=== PATIENT | female | born 1980 | race Hispanic/Latino ===

== ENCOUNTER 2022-04-10 12:50 | Observation (INO) | payer OTHER ==
[~2022-04-10] VITALS: Ht 160 cm; Wt 82.6 kg
[2022-04-10] MEDS ORDERED: SODIUM CHLORIDE FLUSH 10 ML SYR INJ PRN (13:30)
[2022-04-10] MEDS ORDERED: ASPIRIN 325 MG TAB PO ONE (13:30)
[2022-04-10] MEDS ORDERED: INDERAL20 MG PO (13:36)
[2022-04-10] MEDS ORDERED: FLECAINIDE ACE100 MG PO (13:37)
[2022-04-10] MEDS ORDERED: ASPIRIN 325 MG TAB ONE (13:51)
[2022-04-10] MEDS: FAMOTIDINE 20 MG TAB PO SCH ×2 (16:29→20:48)
[2022-04-10 17:33] VITALS: BP 117/81
[2022-04-10 17:40] VITALS: BP 117/81
[2022-04-10 17:54] VITALS: BP 117/81
[2022-04-10 18:32] LABS: CREATINE KINASE 83 IU/L (29-168)
[2022-04-10 20:00] VITALS: BP 100/63
[2022-04-10 21:00] VITALS: BP 100/63
[2022-04-10] MEDS: FLECAINIDE ACETATE 100 MG TAB PO SCH (21:30)
[2022-04-11] VITALS: BP 103/64
[2022-04-11 01:43] LABS: CREATINE KINASE 72 IU/L (29-168)
[2022-04-11 04:00] VITALS: BP 101/60
[2022-04-11 08:16] VITALS: BP 111/82
[2022-04-11 08:19] VITALS: BP 111/82
[2022-04-11] MEDS ORDERED: ASPIRIN 325 MG TAB EC PO SCH (09:00)
[2022-04-11] MEDS: FAMOTIDINE 20 MG TAB PO SCH (09:11)
[2022-04-11] MEDS: FLECAINIDE ACETATE 100 MG TAB PO SCH (09:11)
[2022-04-11] MEDS ORDERED: ONDANSETRON HCL INJ 2MG/ML 2ML 2 MG/ML VIAL IV PRN (11:15)
[2022-04-11] MEDS ORDERED: TRAMADOL HCL 50 MG TAB PO PRN (11:15)
[2022-04-11] MEDS ORDERED: ACETAMINOPHEN 325 MG TAB PO PRN (11:15)
[2022-04-11 11:22] LABS: CHOL/HDL RATIO 3.7 (3.0-3.6)
[2022-04-11] MEDS ORDERED: PANTOPRAZOLE SO40 MG PO (11:29)
[2022-04-11 12:28] VITALS: BP 118/57
== END 2022-04-11 13:40 | disposition home or self-care (01) ==
LOC: FSED 12:55 → ERHOLD 13:33 → MED/SURG3 17:10
PROVIDERS: ADMIT Internal Medicine; ATTEND Internal Medicine
DX: R10.13 Epigastric pain (principal); R07.89 Other chest pain; I49.9 Cardiac arrhythmia, unspecified; E66.09 Other obesity due to excess calories; Z68.32 Body mass index [BMI] 32.0-32.9, adult; Z20.822 Contact with and (suspected) exposure to COVID-19
CPT/HCPCS: 36415 ×2; 71045; 80053; 80061; 81025; 82550 ×2; 82553 ×2; 84484 ×2; 85025; 93005; 99284; G0378 ×2; U0002